=== PATIENT | female | born 1990 | race Caucasian/White ===

== ENCOUNTER 2022-06-04 09:27 | Outpatient (CLI) | payer OTHER, SELFPAY ==
--- NOTE | 2022-06-04 10:00 | CRLHL7_ITS ---
For Patients: As a result of the Century Cures Act, medical imaging exams and procedure reports are released immediately into your electronic medical record. You may view this report before your referring provider. If you have questions, please contact your health care provider. Indication: Sinus congestion Technique: CT of the paranasal sinuses without contrast. Coronal and sagittal reformatted images. Bone and soft tissue algorithms. Comparison: None. Findings: Frontal sinuses: The frontal sinuses and frontal recesses are clear. Hypoplastic left frontal sinus. Ethmoid air cells: The ethmoid air cells are clear. Symmetric depths of the olfactory fossa. The anterior ethmoidal arteries are well-covered by bone. Sphenoid sinuses: The sphenoid sinuses and ostia are clear. No optic canal or carotid canal dehiscence. Maxillary sinuses: Mild mucosal thickening in the right maxillary sinus. The left maxillary sinus is clear. The osteomeatal units are clear. Nasal cavity: There is a 2.8 cm AP x 1.5 cm craniocaudal x 0.8 cm TR nasal polyp on the right side. Rightward deviation of the septum and small septal spur. Skullbase, maxilla, TMJ: No lytic or blastic osseous lesions. No periapical tooth lucencies. Mastoid air cells are clear. Orbital contents: Unremarkable Imaged intracranial contents: Unremarkable Imaged soft tissues structures: Unremarkable IMPRESSION: 1. There is a 2.8 cm soft tissue structure in the right nasal cavity abutting the right middle turbinate most consistent with nasal polyp. 2. Mild mucosal thickening of the right maxillary sinus. Otherwise the paranasal sinuses are clear. 3. Rightward deviation of the nasal septum with septal spur. Please note that all CT scans at this facility use dose modulation, iterative reconstruction, and/or weight-based dosing when appropriate to reduce radiation dose to as low as reasonably achievable. Dictated by Sascha Acosta MD @ 06/04/2022 10:55:22 AM (Electronically Signed)
== END 2022-06-04 09:28 | disposition home or self-care (01) ==
LOC: CT 09:27
PROVIDERS: PCP Family Medicine; Visit Provider Family Medicine
DX: R09.81 Nasal congestion (principal); J32.0 Chronic maxillary sinusitis; J34.2 Deviated nasal septum
CPT/HCPCS: 70486

== ENCOUNTER 2022-06-15 07:28 | Day surgery (SDC) | payer OTHER, SELFPAY ==
[2022-06-15] VITALS (15 sets, daily range): BP systolic 120–143; BP diastolic 79–96; PULSE 71–91; RESP 16–20; TEMP 36.3–36.7; O2SAT 96–99; BMI 28.8
[2022-06-15] MEDS: SODIUM CHLORIDE 0.9 % (FLUSH) 10 ML SYRINGE IVF (08:00)
[2022-06-15] MEDS: ETHYL CHLORIDE 1 APPLICATION 1 APPLIC TOPICAL (08:00)
[2022-06-15 08:02] LABS: Ur HCG Qualitative* Negative (Negative)
[2022-06-15] MEDS: LACTATED RINGERS 1000 ML 1,000 ML 100 ML IV ×2 (08:10→09:00)
[2022-06-15] MEDS: OXYMETAZOLINE 0.05% NASAL SPRAY 1 SPRAY NOSTRIL-B (08:20)
[2022-06-15] MEDS: MUPIROCIN 1 GM PACKET 1 APPLIC TOPICAL (09:37)
[2022-06-15] MEDS: BUPIVACAINE 0.5 %/EPI 1:200K 30 ML INJECTION (09:37)
[2022-06-15] MEDS: COCAINE HCL 4 % 4 ML SOLUTION NOSTRIL-B (09:37)
[2022-06-15] MEDS: BUPIVACAINE 0.5%/EPINEPHRINE 0.9 MG (30.9 ML) INJECTION (09:37)
--- NOTE | 2022-06-15 10:14 | W.PM.ENTPROC ---
Procedure Note Date of procedure: 06/15/22 Procedure: Preoperative diagnosis right superior intranasal mass probable polyp, deviated septum, left inferior turbinate hypertrophy, nasal obstruction. Postoperative diagnosis same Procedure is endoscopic right nasal polypectomy, nasal septoplasty, submucous partial resection left inferior turbinate. Under general endotracheal anesthesia the patient was prepped and draped in usual fashion and the nose injected and decongested. A right hemitransection incision was made left anterior and posterior tunnels were created. A vertical incision was made through the cartilage and a right posterior tunnel created. The posterior septal impactions were resected a large piece of bone was trimmed and returned to the posterior intraseptal space. The hemitransfixion was closed with 2 4-0 chromic sutures. A stab incision was made in the anterior head of the left inferior turbinate and a tunnel created with a [place] dissector. The amaury bone was outfractured and a conservative anterior submucous resection performed. Hemostasis was achieved with the Coblation Wand which was also used to cauterize intramurally along the inferior 10%. The image guidance system was registered with good accuracy. The polyp was easily identified with a 0 degree endoscope and removed with an upbiting ethmoid forceps. It appeared to be attached to the superior medial aspect of the superior medial aspect of right middle turbinate. There was no bleeding. Specimen was sent to pathology was removed in 2 pieces. Photographs were taken of the probably intranasally and of the actual specimen. Silastic stents were then secured on either side the septum with 3-0 nylon. Merocel pack was turned lengthwise, coated in Bactroban, and then placed in each nasal cavity above the stents. The patient was extubated in the operating room and taken to recovery in satisfactory condition. There were no complications. Blood loss was less than 10 mL. Surgeon: Edgardo Chamorro MD
--- NOTE | 2022-06-15 10:19 | W.ANESCHARGE ---
Anesthesia Charges Start Date/Time Anesthesia Start Date: 06/15/22 Anesthesia Start Time: 09:03 Stop Date/Time Anesthesia Stop Date: 06/15/22 Anesthesia Stop Time: 10:20 Summary Emergency: No
--- NOTE | 2022-06-15 10:23 | W.ANESCHARGE ---
Anesthesia Charges Start Date/Time Anesthesia Start Date: 06/15/22 Anesthesia Start Time: 09:03 Stop Date/Time Anesthesia Stop Date: 06/15/22 Anesthesia Stop Time: 10:20 Summary Emergency: No
[2022-06-15] MEDS: OXYCODONE 5 MG TABLET PO (11:04)
[2022-06-15] MEDS: ACETAMINOPHEN 325 MG TABLET PO (11:35)
[2022-06-15] MEDS: IBUPROFEN 200 MG TABLET PO (11:36)
[2022-06-15] MEDS: fentaNYL 100 MCG/2 ML inj 50 MCG IVP (12:08)
== END 2022-06-15 12:40 | disposition home or self-care (01) ==
PROVIDERS: Anesthesiology; PCP Family Medicine; Visit Provider Otolaryngology
PROC: (CPT 31231; principal; 2022-06-15 08:45)
DX: J34.2 Deviated nasal septum (principal); J33.0 Polyp of nasal cavity; J34.3 Hypertrophy of nasal turbinates
CPT/HCPCS: 30520; 30140; 31237; 00160; 81025; 88304; 88305; A9270; J0330; J1100; J1170; J2250; J2405; J2704; J3010; J3490; J7120

== ENCOUNTER 2022-06-19 10:13 | Emergency (ER) | payer OTHER, SELFPAY ==
--- NOTE | 2022-06-19 10:15 | CRLHL7_ITS ---
For Patients: As a result of the Cures Act, medical imaging exams and procedure reports are released immediately into your electronic medical record. You may view this report before your referring provider. If you have questions, please contact your health care provider. INDICATION: NAUSEA. PAIN AND PRESSURE ABOVE, RIGHT EYE. SURG 06/15/22 TECHNIQUE: CT sinus without contrast. COMPARISON: June 04, 2022 CT sinuses. FINDINGS: Interval postoperative changes for removal of previously noted right nasal cavity polyp. There is associated postoperative secretions throughout the nasal cavity and nasopharynx. Enlarged mucosal thickening involving the left middle and inferior turbinates which is likely postoperative in nature/reactive. Again demonstrated is rightward deviation of the nasal septum with small septal spur. Mild mucosal thickening of the bilateral maxillary sinuses. Otherwise, the paranasal sinuses are predominantly clear. Thinning of the cribriform plate which likely intact. The anterior ethmoidal arteries are well-covered by bone. Orbits and globes: Unremarkable. Visualized intracranial contents: Unremarkable. Soft tissues: Unremarkable. IMPRESSION: Interval postoperative changes for removal of previously noted right nasal cavity polyp. There is associated postoperative secretions throughout the nasal cavity and nasopharynx. Enlarged mucosal thickening involving the left middle and inferior turbinates which is likely postoperative in nature/reactive. Mild thickening of the bilateral maxillary sinus mucosa. Otherwise, the paranasal sinuses are predominantly clear. Again demonstrated is rightward deviation of the nasal septum with small septal spur. Please note that all CT scans at this facility use dose modulation, iterative reconstruction, and/or weight-based dosing when appropriate to reduce radiation dose to as low as reasonably achievable. Dictated by Alex Dawson MD @ 06/19/2022 11:25:21 AM (Electronically Signed)
[2022-06-19 10:20] VITALS: BP 142/100; PULSE 78; RESP 18; TEMP 36.5; O2SAT 99; BMI 28.3
--- NOTE | 2022-06-19 11:31 | ED.GENADULT ---
HPI - General Adult General Time Seen by Provider: 11:31 Date Seen: 06/19/22 Chief complaint: Post Op Complication Stated complaint: Needs CT Time Seen by Provider: 06/19/22 10:25 Source: patient, RN notes reviewed and other (spoke with Dr. Chamorro) Mode of arrival: ambulatory Limitations: no limitations History of Present Illness HPI narrative: Patient is referred by Dr. Chamorro postoperatively 4 days after a sinus polyp removal an septal surgery. She reportedly is having pain out of proportion to surgery performed. She had a polyp in the right sinus that was up high but not on the cribriform plate. She is having significant headache. He would like a sinus CT repeated just ensure no complications. She states she has had some sweats. Denies any coughing or respiratory symptoms as a complication. Related Data Home Medications Medication Instructions Recorded Confirmed diclofenac sodium 75 mg 75 mg PO BID 06/05/22 06/19/22 tablet,delayed release eflornithine 13.9 % topical cream 1 applic topical PRN 06/05/22 06/19/22 (Vaniqa) fluoxetine 20 mg capsule 20 mg PO QDAY 06/05/22 06/19/22 fluticasone propionate 50 2 spray intranasal QDAY 06/05/22 06/19/22 mcg/actuation nasal spray,suspension metformin 500 mg tablet 500 mg PO BID 06/05/22 06/19/22 oxymetazoline 0.05 % nasal spray 2 spray intranasal DAILY PRN 06/05/22 06/19/22 (Afrin Sinus (oxymetazoline)) spironolactone 100 mg tablet 100 mg PO BID 06/05/22 06/19/22 Previous Rx's Medication Instructions Recorded ropinirole 1 mg tablet 1 mg PO .HS #90 tabs 04/23/22 ohjhpzmker-ocvqldcayfdep-njabeqng 1 cap PO Q6H PRN pain #30 caps 06/05/22 50 mg-300 mg-40 mg capsule (Fioricet) dextroamphetamine-amphetamine ER 10 mg PO QAM #14 caps 06/05/22 10 mg 24hr capsule,extend release (Adderall XR) dextroamphetamine-amphetamine ER 15 mg PO QAM #30 caps 06/05/22 15 mg 24hr capsule,extend release (Adderall XR) cephalexin 250 mg capsule 250 mg PO TID #15 caps 06/15/22 ondansetron 4 mg disintegrating 4 mg PO Q8H #10 tabs 06/15/22 tablet oxycodone 5 mg tablet 5 mg PO Q4H PRN pain #30 tabs 06/15/22 cefuroxime axetil 500 mg tablet 500 mg PO BID 7 days #14 tabs 06/19/22 Allergies Allergy/AdvReac Type Severity Reaction Status Date / Time latex Allergy Unknown Rash, Verified 06/19/22 09:05 localized swelling Review of Systems Narrative: As per HPI PFSH PFS Medical History (Updated 06/19/22 @ 13:15 by Shaylee Howell MD) Anxiety and depression Gastroesophageal reflux disease Hirsutism History of low back pain Infection due to severe acute respiratory syndrome coronavirus 2 (SARS-CoV-2) (10/2021) Menorrhagia with irregular cycle 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) Restless leg syndrome Surgical History (Updated 06/19/22 @ 13:15 by Shaylee Howell MD) History of laparoscopic cholecystectomy (06/20/17) History of third molar tooth extraction (2008) Status post dilation and curettage Family History (System 06/11/22 @ 15:53 by Genevieve Church) Maternal Grandmother Stroke Paternal Grandmother Stroke Father Lung cancer, Onset Age: 38 Heart disease Social History (System 06/11/22 @ 15:53 by Genevieve Church) Narrative: 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 , 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, 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, 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, 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 EtOH Smoking Status: Smoker, status unknown Do you use any of these nicotine containing products: None How often do you have a drink containing alcohol: 2-3 times a week How many standard drinks containing alcohol do you have on a typical day: 1 or 2 How often do you have six or more drinks on one occasion: Never AUDIT-C Alcohol total score: 3 Non-prescribed substance use: denies use Caffeine: Yes Little interest or pleasure in doing things: several days Feeling down, depressed, or hopeless: several days service: No Exam Const: Vital Signs, click to edit/add: Vital Signs - 24 hr 06/19/22 10:20 06/19/22 12:47 Temperature 97.7 F Pulse Rate [Right Pulse Oximeter] 78 76 Respiratory Rate 18 18 Blood Pressure [[facility]] 142/100 H Pulse Oximetry 99 97 Oxygen Delivery Me thod Room Air Room Air Documenting provider has reviewed patient's vital signs: yes Common normals: no apparent distress, average body habitus, oriented x3, no limitations, healthy appearing and alert General appearance: cooperative, comfortable and well [facility] HENMT: Common normals: normocephalic, head/scalp atraumatic, hearing grossly normal bilaterally, external ears normal and external nose normal Head and scalp: normocephalic and atraumatic Nose: external nose normal External ear: external ears normal Other: Has some bloody nasal drainage, more like blood-tinged clear mucus. Speech is normal. Face is otherwise atraumatic. Eye: Common normals: PERRL, EOMs intact bilaterally, conjunctivae normal and no scleral icterus Conjunctiva: conjunctiva(e) normal Pupil: PERRL Neck & C-Spine: Common normals: full ROM, no lymphadenopathy, supple, no meningeal signs, no JVD and thyroid normal Thyroid: thyroid normal Resp: Common normals: normal respiratory effort, no retractions, no use of accessory muscles and clear to auscultation bilaterally Auscultation: clear to auscultation bilaterally Cardio: Common normals: no JVD, regular rate, regular rhythm, S1 normal heart sound, S2 normal heart sound, no gallops, no clicks, no murmurs and no rub Rate: regular rate Rhythm: regular rhythm Heart sounds: S1 normal and S2 normal Neuro: Common normals: oriented x3 Sensorium/orientation: alert Meningeal signs: no meningeal signs Psych: Appearance: well [facility] Course Course Hospital Course: Will obtain sinus CT as requested by her physician. Reevaluation(s) Reevaluation #1: She feels okay after having an some normal saline IV fluid, 4 mg IV Zofran and 4 mg IV morphine. She is aware her sinus CT which was over-read by Neuro Radiology is not showing any acute complication. I have reviewed this with her ENT physician, he would like her to stay on antibiotics and I concur with this. We will increase the level of her antibiotics from Keflex to cefdinir. Time: 13:10 Vital Signs Vital signs: Initial Vital Signs Temperature 97.7 F 06/19/22 10:20 Temperature Source Temporal Artery Scan 06/19/22 10:20 Pulse Rate 78 06/19/22 10:20 Respiratory Rate 18 06/19/22 10:20 Blood Pressure 142/100 H 06/19/22 10:20 Blood Pressure Mean 114 06/19/22 10:20 Blood Pressure Position Sitting 06/19/22 10:20 Pulse Oximetry 99 06/19/22 10:20 Oxygen Delivery Method 06/19/22 10:20 Vital Signs Temperature 97.7 F 06/19/22 10:20 Pulse Rate 78 06/19/22 10:20 Respiratory Rate 18 06/19/22 10:20 Blood Pressure 142/100 H 06/19/22 10:20 Pulse Oximetry 99 06/19/22 10:20 Oxygen Delivery Method 06/19/22 10:20 Temperature 97.7 F 06/19/22 10:20 Pulse Rate 76 06/19/22 12:47 Respiratory Rate 18 06/19/22 12:47 Blood Pressure 142/100 H 06/19/22 10:20 Pulse Oximetry 97 06/19/22 12:47 Oxygen Delivery Method 06/19/22 12:47 Medical Decision Making Imaging Data CT- Other: Attestation: I have reviewed the pertinent imaging results. Radiologist's impression: Patient: SULEMA SMYTH Facility:?[facility] Patient ID:?[id number] Site Patient ID:?[id number]. Site :?[id number] Study:?CT Sinus WITHOUT-06/19/2022 10:39:48 AM Ordering Physician:Fernando June Final Report: INDICATION: NAUSEA. PAIN AND PRESSURE ABOVE, RIGHT EYE. SURG 06/15/22 TECHNIQUE: CT sinus without contrast. COMPARISON: June 04, 2022 CT sinuses. FINDINGS: Interval postoperative changes for removal of previously noted right nasal cavity polyp. There is associated postoperative secretions throughout the nasal cavity and nasopharynx. Enlarged mucosal thickening involving the left middle and inferior turbinates which is likely postoperative in nature/reactive. Again demonstrated is rightward deviation of the nasal septum with small septal spur. Mild mucosal thickening of the bilateral maxillary sinuses. Otherwise, the paranasal sinuses are predominantly clear. Thinning of the cribriform plate which likely intact. The anterior ethmoidal arteries are well-covered by bone. Orbits and globes: Unremarkable. Visualized intracranial contents: Unremarkable. Soft tissues: Unremarkable. IMPRESSION: Interval postoperative changes for removal of previously noted right nasal cavity polyp. There is associated postoperative secretions throughout the nasal cavity and nasopharynx. Enlarged mucosal thickening involving the left middle and inferior turbinates which is likely postoperative in nature/reactive. Mild thickening of the bilateral maxillary sinus mucosa. Otherwise, the paranasal sinuses are predominantly clear. Again demonstrated is rightward deviation of the nasal septum with small septal spur. Please note that all CT scans at this facility use dose modulation, iterative reconstruction, and/or weight-based dosing when appropriate to reduce radiation dose to as low as reasonably achievable. Dictated by Alex Dawson MD @ 06/19/2022 11:25:21 AM (Electronic Signature) Critical Care Time Critical Care Time Critical Care Time: No Discharge Plan Discharge Clinical Impression: H/O sinus surgery, Post-operative pain Condition: Stable Instructions: Pain Management After Surgery (DC) Additional Instructions: Stop Keflex and switch to new antibiotic, take as prescribed. Continue with postoperative restrictions and recommendations as per Dr. Chamorro. Prescriptions: New cefuroxime axetil 500 mg tablet 500 mg PO BID 7 Days Qty: 14 0RF No Action fluoxetine 20 mg capsule 20 mg PO QDAY Label Comments: TAKE 1 CAPSULE BY MOUTH DAILY. metformin 500 mg tablet 500 mg PO BID spironolactone 100 mg tablet 100 mg PO BID Label Comments: TAKE 1 TABLET BY MOUTH TWICE A DAY diclofenac sodium 75 mg tablet,delayed release (DR/EC) 75 mg PO BID fluticasone propionate 50 mcg/actuation spray,suspension 2 spray intranasal QDAY Rx Instructions: administer into each nostril oxymetazoline [Afrin Sinus (oxymetazoline)] 0.05 % spray,non-aerosol 2 spray intranasal DAILY PRN Vaniqa 13.9 % cream 1 applic topical PRN Label Comments: APPLY TO AFFECTED AREA TWICE A DAY dextroamphetamine-amphetamine [Adderall XR] 10 mg capsule,extended release 24hr 10 mg PO QAM Qty: 14 0RF dextroamphetamine-amphetamine [Adderall XR] 15 mg capsule,extended release 24hr 15 mg PO QAM Qty: 30 0RF ppkbpvvlxz-fcwqgegsdywyh-raxd [Fioricet] 50-300-40 mg capsule 1 cap PO Q6H PRN (Reason: pain) Qty: 30 0RF cephalexin 250 mg capsule 250 mg PO TID Qty: 15 0RF ondansetron 4 mg tablet,disintegrating 4 mg PO Q8H Qty: 10 0RF oxycodone 5 mg tablet 5 mg PO Q4H PRN (Reason: pain) Qty: 30 0RF ropinirole 1 mg tablet 1 mg PO .HS Qty: 90 0RF Follow Up/Referrals: Sascha Pena MD [Primary Care Provider] - [facility]one [facility]
--- OUTSIDE RECORDS SUMMARY | 2022-06-19 12:00 | XMS_ITS | Encounter Summary ---
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
--- OUTSIDE RECORDS SUMMARY | 2022-06-19 12:00 | XMS_ITS | Encounter Summary ---
:1990 Author Organization [facility] Address [address] [place] [address] Care Team Providers Name Role Phone Unavailable Primary Care Provider Unavailable Encounter Details Date Type Department Care Team Description 09/10/2010 Hospital Encounter HX RST LABOR&DELIVERY Nikolas Castillo, AQUINO M.D. [address] [place] [phone] (Wo rk) Social History Tobacco Use Types Packs/Day Years Used Date Smoking Tobacco: Never Assessed Sex Assigned at Date Recorded Not on file documented as of this encounter Plan of Treatment Not on filedocumented as of this encounter Visit Diagnoses Not on filedocumented in this encounter
--- OUTSIDE RECORDS SUMMARY | 2022-06-19 12:00 | XMS_ITS | Encounter Summary ---
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 [address] [place] [phone] (Wo rk) Social History Tobacco Use Types Packs/Day Years Used Date Smoking Tobacco: Never Assessed Sex Assigned at Date Recorded Not on file documented as of this encounter Plan of Treatment Not on filedocumented as of this encounter Visit Diagnoses Not on filedocumented in this encounter
--- OUTSIDE RECORDS SUMMARY | 2022-06-19 12:00 | XMS_ITS | Encounter Summary ---
:1990 Author Organization [facility] Address [address] [place] [address] Care Team Providers Name Role Phone Unavailable Primary Care Provider Unavailable Encounter Details Date Type Department Care Team Description 03/25/2015 Hospital Encounter HX RST ED OBSERVATION Enoc Ulloa UNIT M.D. [address] [place] [phone] (Wo rk) Social History Tobacco Use Types Packs/Day Years Used Date Smoking Tobacco: Never Assessed Sex Assigned at Date Recorded Not on file documented as of this encounter Plan of Treatment Not on filedocumented as of this encounter Visit Diagnoses Not on filedocumented in this encounter Additional Health Concerns Assessment Noted Time PHQ-9 Depression Total Score: 4 07/06/2011 11:49 AM CD T documented as of this encounter
--- OUTSIDE RECORDS SUMMARY | 2022-06-19 12:00 | XMS_ITS | Encounter Summary ---
:1990 Author Organization [facility] Address [address] [place] [address] Care Team Providers Name Role Phone Unavailable Primary Care Provider Unavailable Reason for Visit Reason Comments Results Covid-19 Encounter Details Date Type Department Care Team Description 05/21/2020 Clinical Communication Department of [facility] (Covid-19) Internal Medicine Rohan Brink D.O. in [facility] [address], [place] [phone] Social History Tobacco Use Types Packs/Day Years Used Date Smoking Tobacco: Never Sex Assigned at Date Recorded Not on file documented as of this encounter Miscellaneous Notes Telephone Encounter - Angella Ortiz - 05/21/2020 9:16 AM CDT Negative Covid results sent via mail documented in this encounter Plan of Treatment Not on filedocumented as of this encounter Visit Diagnoses Not on filedocumented in this encounter Additional Health Concerns Infection Onset Date Last Indicated Resolved Time COVID19 Pending 05/19/2020 05/20/2020 05/21/2020 4:18 AM CDT Assessment Noted Time PHQ-9 Depression Total Score: 4 07/06/2011 11:49 AM CD T documented as of this encounter
--- OUTSIDE RECORDS SUMMARY | 2022-06-19 12:00 | XMS_ITS | Clinical Summary ---
:1990 Author Organization [facility] Address [address] [place] [address] Care Team Providers Name Role Phone Elsewhere, Pcp Primary Care Provider Unavailable Source Comments Patient records contain information from all sites at [facility]. For routine questions regarding patient records, call [phone] during business hours, M-F 8:00 AM - 5:00 PM Central Time. Record requests for emergency care only can be directed to [phone] at any time.[facility] Immunizations Name Administration Dates Next Due Influenza (IM) Preservative Free 08/03/2010 Influenza Split 08/19/2011 Tdap 10/09/2010 Social History Tobacco Use Types Packs/Day Years Used Date Smoking Tobacco: Never Sex Assigned at Date Recorded Not on file Last Filed Vital Signs Vital Sign Reading Time Taken Comments Blood Pressure 112/70 10/06/2012 11:20 AM LIFE ASSURANCE REPRESENTATIVE Pulse 78 10/06/2012 11:20 AM LIFE ASSURANCE REPRESENTATIVE Temperature - - Respiratory Rate 18 10/06/2012 11:20 AM LIFE ASSURANCE REPRESENTATIVE Oxygen Saturation - - Inhaled Oxygen - - Concentration Weight 73.4 kg (161 lb 13.1 10/06/2012 11:20 oz) AM LIFE ASSURANCE REPRESENTATIVE Height 167.5 cm (5' 5.95) 01/03/2012 8:08 AM Vital sign result CDT from Clinical No jimbo. Body Mass Index 26.16 01/03/2012 8:08 AM CDT Plan of Treatment Health Maintenance Due Date Last Done Comments HIV Screening 1990 Hepatitis C Screening 1990 Cervical Cancer Screening 01/02/2015 01/03/2012, 03/20/2010 Depression Screening 10/14/2021 (Annual PHQ-2) Influenza Vaccine (#1) 2022 07/12/2021, 07/20/2020, 07/28/2019, Additional history exists DTaP,Tdap,and Td Vaccines 01/08/2024 01/07/2014, 10/09/2010 (3 - Td or Tdap) Hepatitis B Vaccines Completed 04/25/2016, 10/19/2015, 09/07/2015 COVID-19 Vaccine Completed 07/12/2021, 11/08/2020, 10/18/2020 Pneumococcal vaccine (0-64 Aged Out No lo nger eligible years) based on patient 's age to complete this topic Care Teams Product Expert Relationship Specialty Start Date End Date Elsewhere, Pcp PCP - General Family Medicine 08/26/20
--- OUTSIDE RECORDS SUMMARY | 2022-06-19 12:00 | XMS_ITS | Encounter Summary ---
:1990 Author Organization [facility] Address [address] [place] [address] Care Team Providers Name Role Phone Unavailable Primary Care Provider Unavailable Reason for Visit Reason Onset Date Comments Outpatient COVID-19 Testing 05/19/2020 Encounter Details Date Type Department Care Team Description 05/19/2020 External Outreach Department of Rohan Hargrove Infect ion Upper Internal Medicine in J, D.O. Respiratory (Primary [place], [place] [address] Dx) [address] [place] [phone] Social History Tobacco Use Types Packs/Day Years Used Date Smoking Tobacco: Never Sex Assigned at Date Recorded Not on file documented as of this encounter Progress Notes Felicia Alonso RNico. - 05/19/2020 3:56 PM CDT Encounter created for the drive-through COVID-19 testing. documented in this encounter Plan of Treatment Not on filedocumented as of this encounter Procedures Procedure Name Priority Date/Time Associated Diagnosis Comme nts SARS CORONAVIRUS-2 Routine 05/20/2020 3:21 PM Infection Upper Results for this RNA, V CDT Respiratory procedure are i n the results section. documented in this encounter Results SARS Coronavirus-2 RNA, V Symptomatic (05/20/2020 3:21 PM CDT) [facility] Method Time Signature SARS-CoV-2 Swab, 05/21/2020 MKTO Specimen Nasopharynx 4:17 AM CDT Source SARS CoV-2 Undetected Undetected 05/21/2020 MKTO RNA, TMA 4:17 AM CDT Comment: SARS-CoV-2 RNA absent. This result does not rule out COVID-19 in the patient, as the sensitivity of the test depends o n the timing of the specimen collection and the quality of the specim en. Result should be correlated with patient's history and clinical presentat ion. ----ADDITIONAL INFORMATION---- This test is performed using the Aptima SARS-CoV-2 assay ([employer] which has received Emergency Use Authori zation (EUA) by the U.S. Food and Drug Administration. Fact sheets for this Emergency Use Autho rization (EUA) assay can be found at the following links: For Healthcare Providers: https://www.BiOWiSH a.gov/media/783319/download For Patients: https://www.fda.gov/media/ 753706/download Specimen Anatomical Collection Method Collection Time Receive d Time (Source) Location / / Volume Laterality Varies 05/20/2020 3:21 PM 0 7:48 (Nasopharynx) CDT PM CDT Rohan Hargrove D.O. LAB MICROBIOLOGY - GENERAL O [facility]RA Performing Organization Address City/State/ZIP Code Phon e Number [facility]- [address] [place] [address] [place] [address] System [address] documented in this encounter Visit Diagnoses Diagnosis Infection Upper Respiratory - Primary documented in this encounter Additional Health Concerns Infection Onset Date Last Indicated Resolved Time COVID19 Pending 05/19/2020 05/20/2020 05/21/2020 4:18 AM CDT Assessment Noted Time PHQ-9 Depression Total Score: 4 07/06/2011 11:49 AM CD T documented as of this encounter
--- OUTSIDE RECORDS SUMMARY | 2022-06-19 12:00 | XMS_ITS | Encounter Summary ---
:1990 Author Organization [facility] Address [address] [place] [address] Care Team Providers Name Role Phone Unavailable Primary Care Provider Unavailable Encounter Details Date Type Department Care Team Description 03/25/2015 Hospital Encounter HX RST EMERGENCY Provider, Historic al TRAUMA UNI Social History Tobacco Use Types Packs/Day Years [...]
--- OUTSIDE RECORDS SUMMARY | 2022-06-19 12:00 | XMS_ITS | Encounter Summary ---
:1990 Author Organization [facility] Address [address] [place] [address] Care Team Providers Name Role Phone Unavailable Primary Care Provider Unavailable Encounter Details Date Type Department Care Team Description 09/26/2010 - 09/27/2010 Hospital Encounter HX SHAKA VARGAS 3-3 Social History Tobacco Use Types Packs/Day Years Used Date Smoking Tobacco: Never Assessed Sex Assigned at Date Recorded Not on file documented as of this encounter Plan of Treatment Not on filedocumented as of this encounter Visit Diagnoses Not on filedocumented in this encounter
--- OUTSIDE RECORDS SUMMARY | 2022-06-19 12:00 | XMS_ITS | Encounter Summary ---
:1990 Author Organization [facility] Address [address] [place] [address] Care Team Providers Name Role Phone Elsewhere, Pcp Primary Care Provider Unavailable Reason for Visit Reason Onset Date Comments Outpatient COVID-19 Testing 08/26/2020 Encounter Details Date Type Department Care Team Description 08/26/2020 External Outreach Department of Rohan Hargrove Infect ion Upper Internal Medicine in J, D.O. Respiratory ([place], [place] [address]) [address] [facility] [place] [phone] Social History Tobacco Use Types Packs/Day Years Used Date Smoking Tobacco: Never Sex Assigned at Date Recorded Not on file documented as of this encounter Progress Notes Sari Stratton R.N. - 08/26/2020 4:17 PM CST Encounter created for the drive-through COVID-19 testing. UX DEVELOPER documented in this encounter Plan of Treatment Not on filedocumented as of this encounter Procedures Procedure Name Priority Date/Time Associated Diagnosis Comme nts SARS CORONAVIRUS-2 Routine 08/26/2020 6:57 PM Infection Upper Results for this RNA, V UI UX DEVELOPER Respiratory procedure are i n the results section. documented in this encounter Results SARS Coronavirus-2 RNA, V Symptomatic (08/26/2020 6:57 PM UI UX DEVELOPER) [facility] Method Time Signature SARS-CoV-2 Swab, 08/27/2020 MKTO Specimen Nasopharynx 4:34 PM UI UX DEVELOPER Source SARS CoV-2 Undetected Undetected 08/27/2020 MKTO RNA, TMA 4:34 PM UI UX DEVELOPER Comment: SARS-CoV-2 RNA absent. This result does not rule out COVID-19 in the patient, as the sensitivity of the test depends o n the timing of the specimen collection and the quality of the specim en. Result should be correlated with patient's history and clinical presentat ion. ----ADDITIONAL INFORMATION---- This test is performed using the Aptima SARS-CoV-2 assay ([employer] which has received Emergency Use Authori zation (EUA) by the U.S. Food and Drug Administration. Fact sheets for this Emergency Use Autho rization (EUA) assay can be found at the following links: For Healthcare Providers: https://www.Rapid Pathogen Screening a.gov/media/698363/download For Patients: https://www.fda.gov/media/ 389886/download Specimen Anatomical Collection Method Collection Time Receive d Time (Source) Location / / Volume Laterality Varies 08/26/2020 6:57 PM 0 9:57 (Nasopharynx) UI UX DEVELOPER AM UI UX DEVELOPER Rohan Hargrove D.O. LAB MICROBIOLOGY - GENERAL O [facility] Performing Organization Address City/State/[facility] Code Phon e Number [facility]- [address] [place] [address] [place] [address] System in [address] documented in this encounter Visit Diagnoses Diagnosis Infection Upper Respiratory - Primary documented in this encounter Additional Health Concerns Infection Onset Date Last Indicated Resolved Time COVID19 Pending 08/26/2020 08/26/2020 08/27/2020 4:34 PM UI UX DEVELOPER Assessment Noted Time PHQ-9 Depression Total Score: 4 07/06/2011 11:49 AM CD T documented as of this encounter Care Teams Magnaflux Operator Relationship Specialty Start Date End Date Elsewhere, Pcp PCP - General Family Medicine 08/26/20 documented as of this encounter
--- OUTSIDE RECORDS SUMMARY | 2022-06-19 12:00 | XMS_ITS | Clinical Summary ---
:1990 Author Organization [facility] [place] [address] Care Team Providers Name Role Phone Aston Aparicio MD Primary Care Provider [phone] Allergies Active Allergy Reactions Severity Noted Date Comments Latex Rash 06/04/2013 Medications Medication Sig Dispensed Refills Start Date End Date Status acetaminophen Take by mouth every 0 11/23/2013 Active (TYLENOL) 325 mg 4 hours if needed. tablet Max acetaminophen dose: 4000mg in 24 hrs. ibuprofen (ADVIL; Take 3 tablets by 0 03/19/2014 Active MOTRIN) 200 mg tablet mouth every 4 hours if needed. fluticasone (50 mcg Inhale 1 [place] into 1 Bottle 12 03/03/2015 Active per actuation) nasal both nostrils once solution daily. (FLONASE)Indications: Allergy, initial encounter EPINEPHrine (EPIPEN) Inject 0.3 mg 2 Each 1 03/31/2015 Active 0.3 mg/0.3 mL intramuscular one (1:1,000) time if needed for injectionIndications: Allergic Reaction Anaphylaxis, initial for up to 1 dose. encounter diphenhydrAMINE Take 1 capsule by 0 05/30/2015 Active (BENADRYL) 25 mg mouth every 4 hours capsule if needed. nystatin (MYCOSTATIN) Swish and spit 5 mL 1 Bottle 0 06/18/20 18 Active 100,000 unit/mL by mouth 4 times suspensionIndications daily. 7 days. : Rash indomethacin 1 p.o. three times 60 capsule 0 02/20/2019 Active (INDOCIN) 25 mg daily for 3 days, capsuleIndications: then 2 three times Headache syndrome daily. With food. Active Problems Problem Noted Date Gallstones 03/11/2015 Abdominal wall pain 10/23/2013 Low back pain 07/30/2013 Resolved Problems Problem Noted Date Resolved Date Tobacco abuse 03/11/2015 03/20/2017 , normal subsequent 10/23/2013 06/18/2018 Supervision of other normal 07/30/2013 Encounters Date Type Specialty Care Team Description 06/15/2022 Lab Requisition Edgardo Chamorro MD from Last 3 Months Immunizations Name Administration Dates Next Due AMB Influenza, IIV4 PF (=>6 mos 07/27/2014 Flulaval,Fluzone Fluarix)(Flu Clinic Only) Hepatitis B (Adult) 04/25/2016, 10/19/2015, 09/07/2015 Influenza, IIV3 (Age >=3 years) 10/23/2013 Influenza, IIV4 08/19/2015 Tdap 01/07/2014 Tuberculin (PPD) 12/26/2015, 08/19/2015 Family History Medical History Relation Name Comments Cancer Father lung Diabetes Father Heart Disease Father first mi 40's Cancer-colon Neg. 1 Cancer-ovarian Neg. 2 Hypertension Other 1 multiple Hyperlipidemia Other 2 multiple Cancer-breast Paternal Grandmother Relation Name Status Comments Father (Age 50) lung Neg. 1 Neg. 2 Other 1 Other 2 Paternal Grandmother Social History Tobacco Use Types Packs/Day Years Used Date Former Smoker Cigarettes Quit: 03/30/20 15 Smokeless Tobacco: Never Used Tobacco Cessation: Counseling Given: Yes Alcohol Use Standard Drinks/Week Comments Yes 1 (1 standard drink = 0.6 oz pure alcoho l) couple every month Alcohol Habits Answer Date Recorded How often do you have a drink containing alcohol? Not asked How many drinks containing alcohol do you have on a Not aske d typical day when you are drinking? How often do you have six or more drinks on one Not asked occasion? Comment: couple every month 05/13/2018 Sex Assigned at Date Recorded Not on file Obstetrics History Para Term AB IAB SAB Ectopic Multiple Living Live Births 2 2 1 1 1 Date Outcome GA Total Labor/2nd/3rd Weight Sex Delivery Anes PTL Neda A 1 A5 Name Clin Labor 10/08 36w 12h 00m/ 2.83 kg M Vag Rory /2009 0d (6 lb 4 oz) 03/15 Term 40w 4.03 kg M Vag 2d (8 lb 14 oz) Last Filed Vital Signs Vital Sign Reading Time Taken Comments Blood Pressure 131/83 02/05/2019 10:46 AM CDT Pulse 90 02/05/2019 10:46 AM CDT Temperature 36.7 ??C (98 ??F) 02/05/2019 10:46 AM CDT Respiratory Rate 16 10/23/2013 9:51 AM ORGANIZATIONAL 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 DIRECTOR Oxygen Saturation 97% 02/05/2019 10:46 AM CDT Inhaled Oxygen Concentration - - Weight 80.3 kg (177 lb) 02/05/2019 10:46 AM CDT Height 165.1 cm (5' 5) 02/05/2019 10:46 AM CDT Body Mass Index 29.45 02/05/2019 10:46 AM CDT Plan of Treatment Health Maintenance Due Date Last Done Comments COVID-19 vaccine series (#1) 1990 Hepatitis C screening for age 0301/10/2006 18-79 Depression screening for age 12+ 07/01/2019 07/01/2018, 02/2018, 06/03/2018, Additional history exists BMI (ht and wt on same day) for 02/06/2020 02/05/2019, 02/2018, age 18+ 05/13/2018, Additional history exists Pap test for age 21-65 01/02/2021 01/02/2018, 03/11/2015, 11/17/2012 Influenza for age 9-49 06/14/2022 08/19/2015, 07/27/2014, 10/23/2013 Tetanus booster 01/08/2024 01/07/2014 Tdap Completed 01/07/2014 Procedures Procedure Name Priority Date/Time Associated Diagnosis Comme nts LAB TRACKING EVENT Routine 06/15/2022 9:45 AM CDT from Last 3 Months Results LAB TRACKING EVENT (06/15/2022 9:45 AM CDT) Specimen Anatomical Collection Method Collection Time Receive d Time (Source) Location / / Volume Laterality Other (Other) Client Collect / 06/15/2022 9:45 AM 11/2021 3:33 Unknown CDT PM CDT Edgardo Chamorro MD LAB BILL ONLY Performing Organization Address City/State/ZIP Code Phon e Number [facility] [address] [place] [address] LABORATORY-CENTRAL 2000 LABORATORY from Last 3 Months Insurance Payer Benefit Plan / Subscriber ID Effective Dates Phone Addre ss Type Group [employer] [id number] 2017-Present [address] [address] [place] [address] Care Teams Oceanography Professor Relationship Specialty Start Date End Date Aston Aparicio MD PCP - General Family Practice 12/22/[address] [place] [address]
--- OUTSIDE RECORDS SUMMARY | 2022-06-19 12:00 | XMS_ITS | Encounter Summary ---
:1990 Author Organization [facility] Address [address] [place] [address] Care Team Providers Name Role Phone Unavailable Primary Care Provider Unavailable Encounter Details Date Type Department Care Team Description 09/26/2010 Hospital Encounter HX NO MAPPING Social History Tobacco Use Types Packs/Day Years Used Date Smoking Tobacco: Never Assessed Sex Assigned at Date Recorded Not on file documented as of this encounter Plan of Treatment Not on filedocumented as of this encounter Visit Diagnoses Not on filedocumented in this encounter
--- OUTSIDE RECORDS SUMMARY | 2022-06-19 12:00 | XMS_ITS | Encounter Summary ---
:1990 Author Organization [facility] Address [address] [place] [address] Care Team Providers Name Role Phone Unavailable Primary Care Provider Unavailable Encounter Details Date Type Department Care Team Description 08/07/2010 Hospital Encounter HX RST LABOR&DELIVERY Bryn Crum OP FM M.D. [address] [place] [address] [address] [place] [phone] (Wo rk) Social History Tobacco Use Types Packs/Day Years Used Date Smoking Tobacco: Never Assessed Sex Assigned at Date Recorded Not on file documented as of this encounter Plan of Treatment Not on filedocumented as of this encounter Visit Diagnoses Not on filedocumented in this encounter
--- OUTSIDE RECORDS SUMMARY | 2022-06-19 12:00 | XMS_ITS | Encounter Summary ---
:1990 Author Organization [facility] Address [address] [place] [address] Care Team Providers Name Role Phone Unavailable Primary Care Provider Unavailable Encounter Details Date Type Department Care Team Description 08/07/2010 Hospital Encounter HX RST LABOR&DELIVERY Polo Ornelas, NURS R.N. [address] [place] [phone] Social History Tobacco Use Types Packs/Day Years Used Date Smoking Tobacco: Never Assessed Sex Assigned at Date Recorded Not on file documented as of this encounter Plan of Treatment Not on filedocumented as of this encounter Visit Diagnoses Not on filedocumented in this encounter
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
--- OUTSIDE RECORDS SUMMARY | 2022-06-19 12:00 | XMS_ITS | Encounter Summary ---
:1990 Author Organization [facility] Address [address] [place] [id number] Care Team Providers Name Role Phone Elsewhere, Pcp Primary Care Provider Unavailable Encounter Details Date Type Department Care Team Description 08/26/2020 Admin Visit Department of Family Medicine, [address] [id number] [facility] [phone] Social History Tobacco Use Types Packs/Day Years Used Date Smoking Tobacco: Never Sex Assigned at Date Recorded Not on file documented as of this encounter Plan of Treatment Not on filedocumented as of this encounter Visit Diagnoses Not on filedocumented in this encounter Additional Health Concerns Infection Onset Date Last Indicated Resolved Time COVID19 Pending 08/26/2020 08/26/2020 08/27/2020 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
--- OUTSIDE RECORDS SUMMARY | 2022-06-19 12:00 | XMS_ITS | Encounter Summary ---
:1990 Author Organization [facility] Address [address] [place] [address] Care Team Providers Name Role Phone Unavailable Primary Care Provider Unavailable Encounter Details Date Type Department Care Team Description 10/08/2010 - Hospital Encounter HX [facility] UNIT 3-2 10/10/2010 OBSTETRICS Social History Tobacco Use Types Packs/Day Years Used Date Smoking Tobacco: Never Assessed Sex Assigned at Date Recorded Not on file documented as of this encounter Plan of Treatment Not on filedocumented as of this encounter Visit Diagnoses Not on filedocumented in this encounter
[2022-06-19] MEDS: 0.9 % SODIUM CHLORIDE 500 ML 500 ML IV (12:36)
[2022-06-19] MEDS: ONDANSETRON 2 MG/ML inj 4 MG IVP (12:37)
[2022-06-19] MEDS: MORPHINE 2 MG/ML inj IVP (12:37)
[2022-06-19 12:47] VITALS: PULSE 76; RESP 18; O2SAT 97
--- NOTE | 2022-06-19 12:48 | ED.NURSE ---
patient was struggling with bout of nausea and given Zofran 4mg IVP now for nausea. patient does not feel very well became pale and diaphoretic, laid down with the head of the bed lower than the feet. Given a cool wash cloth. feeling a little better and sitting up slightly as color is returning.
--- NOTE | 2022-06-19 13:03 | ED.NURSE ---
patient is feeling better and is wondering what the next step is. Updated Dr. Tavarez and will go in and talk about to patient.
[2022-06-19 13:30] VITALS: BP 119/81; PULSE 75; RESP 16; O2SAT 98
== END 2022-06-19 13:38 | disposition home or self-care (01) ==
PROVIDERS: Emergency Provider Family Medicine; PCP Family Medicine
DX: G89.18 Other acute postprocedural pain (principal)
CPT/HCPCS: 70486; 96361; 96374; 96375; 99283; 99284; J2270; J2405; J7120